=== PATIENT | female | born 1995 | race Caucasian/White ===

== ENCOUNTER 2017-11-26 00:07 | Emergency (ER) | payer SELFPAY ==
[~2017-11-26] VITALS: Ht 160 cm; Wt 45.5 kg
[2017-11-26 00:09] VITALS: BP 118/73
== END 2017-11-26 03:00 | disposition left against medical advice (07) ==
LOC: EMS 00:08
DX: R06.02 Shortness of breath (principal); Z53.21 Procedure and treatment not carried out due to patient leaving prior to being seen by health care provider